=== PATIENT | female | born 1950 | race American Indian/Alaskan Native ===

== ENCOUNTER 2018-11-08 08:58 | Outpatient (CLI) | payer OTHER ==
[2018-11-08] MEDS ORDERED: PROVENTIL IH ONE (09:42)
== END 2018-11-08 08:59 | disposition home or self-care (01) ==
LOC: PF 08:58
PROVIDERS: ATTEND Internal Medicine
DX: R06.02 Shortness of breath (principal)
CPT/HCPCS: 94060; 94640